=== PATIENT | male | born 1970 | race Two or more races ===

== ENCOUNTER 2021-05-18 22:57 | Emergency (ER) | payer OTHER ==
[2021-05-18 23:05] VITALS: BP 155/92; PULSE 68; TEMP 97.9; BMI 31.9
[2021-05-19] MEDS ORDERED: IBUPROFEN 600 MG TABLET (FP) PO ONE (00:34)
[2021-05-19] MEDS ORDERED: IBUPROFEN 400 MG TABLET (FP) PO ONE (00:50)
[2021-05-19] MEDS ORDERED: morphine SULFATE IMMEDIATE RELEASE 30 MG TAB PO ONE ×2 (02:16→03:11)
[2021-05-19] MEDS ORDERED: morphine SULFATE IMMEDIATE RELEASE 30 MG TAB ONE ×2 (02:46→03:15)
[2021-05-19] MEDS ORDERED: CEPHALEXIN MONOHYDRATE 500 MG CAPSULE (UD) PO ONE (03:11)
[2021-05-19] MEDS ORDERED: CEPHALEXIN MONOHYDRATE 500 MG CAPSULE (UD) ONE (03:15)
== END 2021-05-19 04:40 | disposition home or self-care (01) ==
LOC: JER 22:57
DX: S90.811A Abrasion, right foot, initial encounter (principal); S97.81XA Crushing injury of right foot, initial encounter; W23.1XXA Caught, crushed, jammed, or pinched between stationary objects, initial encounter; Y92.9 Unspecified place or not applicable
CPT/HCPCS: 73610-TC-RT-FY; 73630-TC-RT-FY; 99284-25

== ENCOUNTER 2024-05-26 05:13 | Day surgery (SDC) | payer OTHER ==
[2024-05-23 10:11] VITALS: BMI 32.3
[2024-05-26] MEDS ORDERED: MIDAZOLAM HCL 2 MG/2 ML SINGLE DOSE VIAL ONE (12:43)
[2024-05-26 13:22] VITALS: RESP 20
[2024-05-26 14:42] VITALS: BP 133/80; PULSE 66; TEMP 97.7
== END 2024-05-26 14:30 | disposition home or self-care (01) ==
LOC: JASU-SURG 05:13
PROVIDERS: ATTEND Urology
PROC: 0TF3XZZ Fragmentation in Right Kidney Pelvis, External Approach (ICD-10-PCS; principal; 2024-05-26 12:47)
DX: N20.0 Calculus of kidney (principal)